=== PATIENT | female | born 1985 | race Caucasian/White ===

== ENCOUNTER 2020-11-29 18:36 | Emergency (ER) | payer OTHER, SELFPAY ==
--- NOTE | ~2020-11-29 | XR_ITS ---
EXAMINATION: XR hand LT min 3V EXAM DATE: 11/29/2020 18:58 INDICATION: Initial encounter following injury, with pain of the TECHNIQUE: Left hand frontal, lateral and oblique projections obtained and reviewed. There is no michelle or study for comparison. FINDINGS: Left metacarpal bones are unremarkable. There are no acute fractures or dislocations ident ified. There is no subcutaneous gas. The soft tissue is unremarkable. There are no radiopaque for eign bodies. IMPRESSION: No acute osseous findings. Reviewed, dictated and finalized at location A. IMPRESSION: No acute osseous findings.
[2020-11-29 18:45] VITALS: BP 140/99; PULSE 106; RESP 20; TEMP 36.7; O2SAT 98
--- NOTE | 2020-11-29 19:07 | ED.GENADULT ---
HPI - General Adult General Chief complaint: Extremity Injury, Upper Stated complaint: left hand injury Time Seen by Provider: 11/29/20 18:50 Source: patient and RN notes reviewed Mode of arrival: ambulatory Limitations: no limitations History of Present Illness HPI narrative: 35-year-old female presents with left hand and finger pain and swelling for 1 day. ?Nolvia reports LT hand stuck in the sliding door causing injury to LT hand. ?Tylenol last this am without relief. ?No radiation of pain. No loss of mobility. ?Exacerbating factors consist of movement. ?The relieving factor is immobility. ?Dominant hand is the RIGHT HAND. ?No suspected abuse. ?LMP 1 week ago. ?Remains active. ?The patient reports she has not been diagnosed with COVID-19. ?The patient reports she is not waiting for the results of a COVID-19 lab test. ?The patient reports she does not have fever, chills, weakness, fatigue, or myalgia. ?The patient reports she does not have a new or worsening cough or shortness of breath. ?The patient reports she does not have any rhinorrhea, congestion, loss of taste, sore throat, and diarrhea. ?Denies recent traveling. ?Denies concerns for COVID-19 or exposures. ?At this time, the patient is not suspected of having COVID-19. Some parts of this dictation were generated by voice recognition software and may contain typographical and/or grammatical inaccuracies. Related Data Home Medications Medication Instructions Recorded Confirmed amitriptyline 100 mg PO DAILY 11/29/20 11/29/20 carvedilol 12.5 mg PO BID 11/29/20 11/29/20 citalopram 20 mg PO DAILY 11/29/20 11/29/20 citalopram 40 mg PO DAILY 11/29/20 11/29/20 furosemide 0.5 mg PO DAILY 11/29/20 11/29/20 glipizide 5 mg PO BID 11/29/20 11/29/20 glipizide 10 mg PO BID 11/29/20 11/29/20 losartan 50 mg PO DAILY 11/29/20 11/29/20 metformin 1,000 mg PO BID 11/29/20 11/29/20 naproxen 500 mg PO BID PRN 11/29/20 11/29/20 Allergies Allergy/AdvReac Type Severity Reaction Status Date / Time No Known Allergies Allergy Unknown Verified 11/29/20 18:54 Review of Systems Review of Systems: Narrative: CONSTITUTIONAL: Denies fever, chills, sweats. EYES: Denies visual changes, redness, discharge. ENT: Denies rhinorrhea, congestion, sore throat, otalgia. CARDIOVASCULAR: Denies chest pain, palpitations, edema. RESPIRATORY: Denies dyspnea, wheezing, cough. GASTROINTESTINAL: Denies abdominal pain, nausea, vomiting, diarrhea. SKIN: Denies rash or itching. MUSCULOSKELETAL: Denies acute back pain or myalgia. Complains of Left hand and fingers swelling and pain. NEUROLOGIC: Denies numbness or focal weakness. PSYCHIATRIC: Denies anxiety or depression. All other systems reviewed & are unremarkable except as noted in HPI and below. [facility] Past Medical History Medical History (Updated 11/30/20 @ 00:00 by Lis Fontaine) Anxiety delivery delivered CHF (congestive heart failure) Diabetes Obesity Surgical History Surgical History (Updated 11/29/20 @ 19:28 by KIMBERLEE Harley) H/O section Family History Family History (Updated 11/29/20 @ 19:29 by KIMBERLEE Harley) Father , Unknown reason Unknown family medical history Mother Hypertension Social History Social History (Updated 11/29/20 @ 19:30 by KIMBERLEE Harley) Smoking status: Former smoker Tobacco type: cigarettes Second hand tobacco smoke exposure: No Smoking end date: 06/20/08 Alcohol intake: former Substance use: never Substance use type: does not use Living arrangements: with family Occupation/Education: unemployed Gender identity (if verbalized by the patient): Female Sexual Orientation (if Verbalized by the Patient): Straight or Heterosexual Comments At time of signature, agree with the nurse past medical, surgical, social, and family history. There is no relevant family history pertinent to the presenting complaint. Exam Narrative:
[2020-11-29 19:30] VITALS: BP 140/84
== END 2020-11-29 19:30 | disposition home or self-care (01) ==
PROVIDERS: Emergency Provider Nurse Practitioner Family; PCP Nurse Practitioner Family
DX: S63.92XA Sprain of unspecified part of left wrist and hand, initial encounter (principal); S60.222A Contusion of left hand, initial encounter; S60.022A Contusion of left index finger without damage to nail, initial encounter; S60.032A Contusion of left middle finger without damage to nail, initial encounter; W23.0XXA Caught, crushed, jammed, or pinched between moving objects, initial encounter; I10 Essential (primary) hypertension; E11.9 Type 2 diabetes mellitus without complications; F32.9 Major depressive disorder, single episode, unspecified
CPT/HCPCS: 73130; 99213; G0463

== ENCOUNTER 2021-04-25 18:01 | Emergency (ER) | payer OTHER, SELFPAY ==
--- NOTE | ~2021-04-25 | XR_ITS ---
EXAMINATION: XR elbow RT min 3V EXAM DATE: 04/25/2021 18:31 INDICATION: Fell down stairs, pain posterior rt elbow. Initial encounter. TECHNIQUE: Right elbow frontal, lateral with flexion, and oblique projections obtained and reviewed. There is no prior study for comparison. FINDINGS: Right elbow anterior humeral line intact. There are no acute fractures or dislocations federico ntified. There is no subcutaneous gas. The soft tissue is unremarkable. There are no radiopaque f oreign bodies. IMPRESSION: No acute osseous findings. Reviewed, dictated and finalized at location A. LY ASSOCIATE IMPRESSION: No acute osseous findings.
[2021-04-25 18:08] VITALS: BP 146/92; PULSE 89; RESP 20; TEMP 36.7; O2SAT 98
[2021-04-25 18:29] VITALS: BP 146/92; PULSE 89; RESP 20; TEMP 36.7; O2SAT 98
--- NOTE | 2021-04-25 18:45 | ED.UPPEXIN ---
HPI - Extremity Injury (Upper) General Chief Complaint: Extremity Injury, Upper Stated Complaint: right elbow injury History of Present Illness HPI narrative: Patient grabbed the arm rale and it fell off and she went rolling down the hill and she landed on her left elbow and she is wanting to make sure that her elbow is not broken. Related Data Home Medications Medication Instructions Recorded Confirmed amitriptyline 100 mg PO HS 11/29/20 04/25/21 carvedilol 12.5 mg PO BID 11/29/20 04/25/21 citalopram 20 mg PO HS 11/29/20 04/25/21 citalopram 40 mg PO HS 11/29/20 04/25/21 furosemide 20 mg PO DAILY PRN 11/29/20 04/25/21 glipizide 10 mg PO BID 11/29/20 04/25/21 losartan 100 mg PO DAILY 11/29/20 04/25/21 metformin 1,000 mg PO BID 11/29/20 04/25/21 cyclobenzaprine 10 mg PO TID PRN 04/25/21 04/25/21 dulaglutide [Trulicity] 1.5 mg SUBCUT WEEKLY 04/25/21 04/25/21 empagliflozin [Jardiance] 10 mg PO DAILY 04/25/21 04/25/21 furosemide 40 mg PO DAILY 04/25/21 04/25/21 Allergies Allergy/AdvReac Type Severity Reaction Status Date / Time No Known Allergies Allergy Unknown Verified 04/25/21 18:29 Review of Systems Review of Systems: left elbow pain PMFSH Past Medical History Medical History (Updated 04/26/21 @ 00:00 by Lis Fontaine) Anxiety delivery delivered CHF (congestive heart failure) Diabetes Obesity Surgical History Surgical History (Updated 11/29/20 @ 19:28 by KIMBERLEE Harley) H/O section Family History Family History (Updated 11/29/20 @ 19:29 by KIMBERLEE Harley) Father , Unknown reason Unknown family medical history Mother Hypertension Social History Social History (Updated 11/29/20 @ 19:30 by KIMBERLEE Harley) Smoking status: Former smoker Tobacco type: cigarettes Second hand tobacco smoke exposure: No Smoking end date: 06/20/08 Alcohol intake: former Substance use: never Substance use type: does not use Gender identity (if verbalized by the patient): Female Sexual Orientation (if Verbalized by the Patient): Straight or Heterosexual Comments At time as signature, I have reviewed and agree with nursing past medical, social, surgical and family history. Please see nursing chart for further information. There is no relevant family history pertinent to the presenting complaint. Exam Narrative: GENERAL:Well-appearing, well-nourished, and in no acute distress. HEAD:Normocephalic, atraumatic. EYES: PERRLA ENT: Nares clear, no rhinorrhea or epistaxis. Mucous membranes moist. CHEST: Clear to auscultation. No respiratory distress. EXTREMITIES: Left elebow pain with morbid obesit noted decreased range of motion due to weight and pain SKIN: Warm, dry, no rash. abrasion on elbow NEURO: No focal deficits. Alert and oriented x3. Course DRY COL[employer] MIXER/PA Physician Supervision [facility] [id number] [place], [place] [id number] XRay ReportSigned Patient: Nolvia Lopez ADOB: 1985MR#: [id number]/Sex: 35 / FAcct:[id number]: EXPBETH ADM Date: 04/25/21Attending Dr: Ordering Physician: Sandhya Gross APN Date of Service: 04/25/21 Procedure(s): XR elbow RT min 3V Accession Number(s): [id number] cc: Sandhya Gross APN; LARA,SHIVANI DUNNE~ EXAMINATION: XR elbow RT min 3V EXAM DATE: 04/25/2021 18:31 INDICATION: Fell down stairs, pain posterior rt elbow. Initial encounter. TECHNIQUE: Right elbow frontal, lateral with flexion, and oblique projections obtained and reviewed. There is no prior study for comparison. FINDINGS: Right elbow anterior humeral line intact. There are no acute fractures or dislocations identified. There is no subcutaneous gas. The soft tissue is unremarkable. There are no radiopaque foreign bodies. IMPRESSION: No acute osseous findings. Vital Signs Vital signs: Vital Signs Temperature 98.1 F 04/25/21 18:08 Pulse Rate 89 04/25/21 18:08 Re
== END 2021-04-25 18:55 | disposition home or self-care (01) ==
PROVIDERS: Emergency Provider Nurse Practitioner Family; PCP Nurse Practitioner Family
DX: S53.401A Unspecified sprain of right elbow, initial encounter (principal); W17.81XA Fall down embankment (hill), initial encounter; I11.0 Hypertensive heart disease with heart failure; E11.9 Type 2 diabetes mellitus without complications; E66.9 Obesity, unspecified; Z68.45 Body mass index [BMI] 70 or greater, adult
CPT/HCPCS: 73080; 99213; G0463

== ENCOUNTER 2024-03-26 13:57 | Emergency (ER) | payer OTHER, SELFPAY ==
[2024-03-26 14:02] VITALS: BP 116/58; PULSE 93; RESP 20; TEMP 36.6; O2SAT 95
--- NOTE | 2024-03-26 14:06 | ED.SKABFB ---
HPI - Skin/Abscess/Foreign Bdy General Chief complaint: Skin/Abscess/Foreign Body Stated complaint: Open wound on back Time Seen by Provider: 03/26/24 14:09 Source: patient Mode of arrival: ambulatory Limitations: no limitations History of Present Illness HPI narrative: 38 y/o female with DM and CHF presented for c/o of a wound to mid lower back for almost one month. States she was in the hospital for one week following weight loss surgery 02/26, where she developed the wound. Has been cleansing the wound with sterile saline solution and applying a bandage to the wet wound. States it now appears wider than it has. Pt contacted her surgeon who advised pt to see pcp, who was out of town. She is scheduled with pcp 04/02. Denies n/v/d/f/c. Related Data Home Medications Medication Instructions Recorded Confirmed amitriptyline 100 mg tablet 100 mg PO HS 11/29/20 03/26/24 carvedilol 12.5 mg tablet 12.5 mg PO BID 11/29/20 03/26/24 citalopram 20 mg tablet 20 mg PO HS 11/29/20 03/26/24 glipizide 10 mg tablet 10 mg PO BID 11/29/20 03/26/24 losartan 50 mg tablet 100 mg PO DAILY 11/29/20 03/26/24 atorvastatin 10 mg tablet 10 mg PO DAILY 03/26/24 03/26/24 bupropion HCl 150 mg 24 hr tablet, 150 mg PO DAILY 03/26/24 03/26/24 extended release dapagliflozin propanediol 5 mg 5 mg PO DAILY 03/26/24 03/26/24 tablet (Farxiga) enoxaparin 40 mg/0.4 mL 40 mg subcut DIRECTED 03/26/24 03/26/24 subcutaneous syringe ferrous sulfate 325 mg (65 mg 325 mg PO DAILY 03/26/24 03/26/24 iron) tablet (FeroSul) naproxen 500 mg tablet mg 03/26/24 omeprazole 20 mg capsule,delayed 20 mg PO BID 03/26/24 03/26/24 release ondansetron HCl 4 mg tablet mg 03/26/24 potassium chloride 10 mEq 10 meq PO DAILY 03/26/24 03/26/24 tablet,extended release sacubitril 24 mg-valsartan 26 mg 1 tablet PO BID 03/26/24 03/26/24 tablet (Entresto) tirzepatide 15 mg/0.5 mL 15 mg subcut WEEKLY 03/26/24 03/26/24 subcutaneous pen injector (Mounjaro) tirzepatide 5 mg/0.5 mL 5 mg subcut WEEKLY 03/26/24 03/26/24 subcutaneous pen injector (Mounjaro) tirzepatide 7.5 mg/0.5 mL 7.5 mg subcut WEEKLY 03/26/24 03/26/24 subcutaneous pen injector (Mounjaro) ursodiol 300 mg capsule 300 mg PO BID 03/26/24 03/26/24 Allergies Allergy/AdvReac Type Severity Reaction Status Date / Time No Known Allergies Allergy Unknown Verified 04/25/21 18:29 Review of Systems Review of Systems: CONSTITUTIONAL: Denies body aches, fever, chills, or sweats. CARDIOVASCULAR: Denies chest pain, palpitations, or edema. RESPIRATORY: Denies cough or dyspnea. GASTROINTESTINAL: Denies abdominal pain, nausea, vomiting, or diarrhea. SKIN: per HPI MUSCULOSKELETAL: Denies back pain, joint pain, or myalgia. NEUROLOGIC: Denies headache, numbness, tingling, or weakness. [facility] Past Medical History Medical History Anxiety delivery delivered CHF (congestive heart failure) Diabetes Obesity Surgical History Surgical History H/O section Family History Family History Father , Unknown reason Unknown family medical history Mother Hypertension Social History Social History Smoking status: Former smoker Tobacco type: cigarettes Second hand tobacco smoke exposure: No Smoking end date: 06/20/08 Alcohol intake: former Substance use: never Substance use type: does not use Living arrangements: with family Occupation/Education: unemployed Gender identity (if verbalized by the patient): Female Sexual Orientation (if Verbalized by the Patient): Straight or Heterosexual Comments At time of signature, I have reviewed and agree with nursing past medical, surgical, social and family history unless otherwise noted. Please see nursing chart for further information. There is no relevant family history pertinent to the presenting complaint Exam Narrative: GENERAL: Well-appearing EYES: conjunctivae clear, and EOMI. ENT: Mucous membranes moist. Oropharynx without edema, erythema or lesions. CHEST: Clear to auscultation. HEART: Regular rate and rhythm. SKIN: Warm, dry. Mid lumbar spine with healing wound approx 1.5cmx0.5cm, wound bed pink and yellow in color, dry. Superficial Wound extends laterally into skin fold approx 12 cm; dry and pink, no drainage, nontender.. No surrounding erythema or induration. NEURO: Alert and oriented x3. Course Course Emergency Course: Patient is aware of diagnosis, understands and agrees to treatment plan. Anticipatory guidance given. Patient agrees to follow-up as directed and is aware of reasons to seek care at the emergency department. Portions of this record may have been created with voice recognition software Level of Care: Express Care Visit Vital Signs Vital signs: Vital Signs Temperature 97.8 F 03/26/24 14:02 Pulse Rate 93 03/26/24 14:02 Respiratory Rate 20 03/26/24 14:02 Blood Pressure 116/58 L 03/26/24 14:02 Pulse Oximetry 95 03/26/24 14:02 Oxygen Delivery Room Air 03/26/24 14:02 Temperature 97.8 F 03/26/24 14:02 Pulse Rate 93 03/26/24 14:02 Respiratory Rate 20 03/26/24 14:02 Blood Pressure 116/58 L 03/26/24 14:02 Pulse Oximetry 95 03/26/24 14:02 Oxygen Delivery Room Air 03/26/24 14:02 Reviewed MDM - Skin/Abscess/Foreign Bdy MDM Narrative Medical decision making narrative: Discussed physical exam findings and reviewed RX. Advised supportive measures and signs/symptoms to go to the ER. Pt is appropriate for outpt treatment and f/uwith pcp in 1 week. Differential Diagnosis Differential diagnosis: Likely abscess of skin or subcutaneous tissue, urticaria, herpes zoster, cellulitis and contact dermatitis Discharge Plan Discharge Clinical Impression: Open wound of back Patient Disposition: Home, Self-Care Condition: Stable Instructions: Antibiotic Form, Acute Wounds (ED) Additional Instructions: Keep the area clean and dry - cleanse daily with warm water and mild soap and allow to fully dry. Ok to apply neosporin to the site Keep it open to air (no bandages unless the site is draining) Watch for worsening symptoms including pain, redness, swelling, streaking, pus/drainage, fever. Go to the ER with any of these symptoms or concerns. Follow up with primary care provider As scheduled in 1 week Prescriptions: New doxycycline hyclate 100 mg tablet 100 mg PO BID 5 Days Qty: 10 0RF No Action carvedilol 12.5 mg tablet 12.5 mg PO BID glipizide 10 mg tablet 10 mg PO BID losartan 50 mg tablet 100 mg PO DAILY citalopram 20 mg tablet 20 mg PO HS amitriptyline 100 mg tablet 100 mg PO HS atorvastatin 10 mg tablet 10 mg PO DAILY bupropion HCl 150 mg tablet extended release 24 hr 150 mg PO DAILY enoxaparin 40 mg/0.4 mL syringe 40 mg subcut DIRECTED Entresto 24-26 mg tablet 1 tablet PO BID ursodiol 300 mg capsule 300 mg PO BID ferrous sulfate [FeroSul] 325 mg (65 mg iron) tablet 325 mg PO DAILY dapagliflozin propanediol [Farxiga] 5 mg tablet 5 mg PO DAILY omeprazole 20 mg capsule,delayed release(DR/EC) 20 mg PO BID naproxen 500 mg tablet Mounjaro 15 mg/0.5 mL pen injector 15 mg SUBCUT WEEKLY Mounjaro 5 mg/0.5 mL pen injector 5 mg SUBCUT WEEKLY Mounjaro 7.5 mg/0.5 mL pen injector 7.5 mg SUBCUT WEEKLY ondansetron HCl 4 mg tablet potassium chloride 10 mEq tablet extended release 10 meq PO DAILY Follow-up/Referrals: Hardy,Amira Brothers APN [Primary Care Provider] -
== END 2024-03-26 14:21 | disposition home or self-care (01) ==
PROVIDERS: Emergency Provider Nurse Practitioner Family; PCP Nurse Practitioner Family
DX: S31.000A Unspecified open wound of lower back and pelvis without penetration into retroperitoneum, initial encounter (principal); X58.XXXA Exposure to other specified factors, initial encounter; Z87.891 Personal history of nicotine dependence; E11.8 Type 2 diabetes mellitus with unspecified complications; Z79.84 Long term (current) use of oral hypoglycemic drugs; I50.9 Heart failure, unspecified; E66.9 Obesity, unspecified; Z68.44 Body mass index [BMI] 60.0-69.9, adult; F41.9 Anxiety disorder, unspecified
CPT/HCPCS: 99213; G0463

== ENCOUNTER 2025-04-12 15:01 | Emergency (ER) | payer OTHER, SELFPAY ==
[2025-04-12 15:06] VITALS: BP 130/72; PULSE 95; RESP 20; TEMP 36.4; O2SAT 98
[2025-04-12] MEDS: TETANUS,DIPHTHERIA,AC PERTUSSIS ADULT (0.5 ML) BOOSTRIX IM (15:19)
--- NOTE | 2025-04-12 15:23 | ED.WOUNDLAC ---
HPI - Wound/Laceration General Chief Complaint: Wound/Laceration Stated Complaint: left hand finger lac Time Seen by Provider: 04/12/25 15:10 Source: patient and RN notes reviewed Mode of arrival: ambulatory Limitations: no limitations History of Present Illness HPI narrative: 39-year-old female presents Express Care complaining left middle finger laceration occurred approximately 7 hours ago. Patient was cleaning her car when accidentally cut her finger on something metal in her car. Patient said about an hour ago while at the store the wound started bleeding again and Decided to come in for further evaluation. Patient was given a Band-Aid at the store, the bleeding is controlled prior to arrival. Patient reports a history of diabetes. Denies any other injuries, numbness, tingling every other symptoms. Patient's tetanus is not up-to-date. Related Data Home Medications ?Medication ?Instructions ?Recorded ?Confirmed ?Last Taken ?Type amitriptyline 100 mg tablet 100 mg PO HS 11/29/20 03/26/24 Unknown History carvedilol 12.5 mg tablet 12.5 mg PO BID 11/29/20 03/26/24 Unknown History citalopram 20 mg tablet 20 mg PO HS 11/29/20 03/26/24 Unknown History glipizide 10 mg tablet 10 mg PO BID 11/29/20 03/26/24 Unknown History losartan 50 mg tablet 100 mg PO DAILY 11/29/20 03/26/24 Unknown History atorvastatin 10 mg tablet 10 mg PO DAILY 03/26/24 03/26/24 Unknown History bupropion HCl 150 mg 24 hr tablet, 150 mg PO DAILY 03/26/24 03/26/24 Unknown History extended release dapagliflozin propanediol 5 mg 5 mg PO DAILY 03/26/24 03/26/24 Unknown History tablet (Farxiga) enoxaparin 40 mg/0.4 mL 40 mg subcut DIRECTED 03/26/24 03/26/24 Unknown History subcutaneous syringe ferrous sulfate 325 mg (65 mg 325 mg PO DAILY 03/26/24 03/26/24 Unknown History iron) tablet (FeroSul) naproxen 500 mg tablet mg 03/26/24 Unknown History omeprazole 20 mg capsule,delayed 20 mg PO BID 03/26/24 03/26/24 Unknown History release sacubitril 24 mg-valsartan 26 mg 1 tablet PO BID 03/26/24 03/26/24 Unknown History tablet (Entresto) tirzepatide 15 mg/0.5 mL 15 mg subcut WEEKLY 03/26/24 03/26/24 Unknown History subcutaneous pen injector (Mounjaro) tirzepatide 5 mg/0.5 mL 5 mg subcut WEEKLY 03/26/24 03/26/24 Unknown History subcutaneous pen injector (Mounjaro) tirzepatide 7.5 mg/0.5 mL 7.5 mg subcut WEEKLY 03/26/24 03/26/24 Unknown History subcutaneous pen injector (Mounjaro) buspirone 5 mg tablet mg 04/12/25 Unknown History furosemide 20 mg tablet mg 04/12/25 Unknown History semaglutide 0.25 mg or 0.5 mg (2 mg subcut 04/12/25 Unknown History mg/3 mL) subcutaneous pen injector (Ozempic) semaglutide 1 mg/dose (4 mg/3 mL) mg subcut 04/12/25 Unknown History subcutaneous pen injector (Ozempic) Allergies Allergy/AdvReac Type Severity Reaction Status Date / Time No Known Allergies Allergy Unknown Verified 04/12/25 15:10 Review of Systems Review of Systems: CONSTITUTIONAL: Denies fever, chills, or sweats. EYES: Denies visual changes, redness, or discharge. ENT: Denies rhinorrhea, congestion, sore throat, or otalgia. CARDIOVASCULAR: Denies chest pain, palpitations, or edema. RESPIRATORY: Denies cough or dyspnea. GASTROINTESTINAL: Denies abdominal pain, nausea, vomiting, or diarrhea. GENITOURINARY: Denies dysuria or hematuria. SKIN: Denies rash or itching. Positive for laceration. MUSCULOSKELETAL: Denies back pain, joint pain, or myalgia. NEUROLOGIC: Denies headache, numbness, or weakness. PSYCHIATRIC: Denies anxiety or depression. All other systems reviewed are negative, except as documented in HPI. [facility] Past Medical History Medical History delivery delivered CHF (congestive heart failure) Anxiety Diabetes Obesity Surgical History Surgical History H/O section Family History Family History Father , Unknown reason Unknown family medical history Mother Hypertension Social History Social History Smoking status: Former smoker Tobacco type: cigarettes Second hand tobacco smoke exposure: No Smoking end date: 06/20/08 Alcohol intake: former Substance use: never Substance use type: does not use Living arrangements: with family Occupation/Education: unemployed Gender identity (if verbalized by the patient): Female Sexual Orientation (if Verbalized by the Patient): Straight or Heterosexual Comments At the time of my signature, I reviewed and agree with the nursing past medical, surgical, social, and family history. There is no relevant family history pertinent to the patient complaint. Exam Narrative: GENERAL: This is a well-nourished, well-developed adult, in no apparent distress. They are non ill-appearing, nontoxic appearing. HEAD: normocephalic, atraumatic. EYES: Sclera clear/white. Conjunctiva normal. Vision is grossly intact. Extraocular movements intact EARS: External ears normal, Hearing grossly intact. NOSE: External nose normal THROAT: Mucous membranes moist, NECK: Neck supple, CARDIOVASCULAR: Regular rate and rhythm RESPIRATORY: Respiratory rate normal, respiratory effort nonlabored, no respiratory distress SKIN: warm, Dry, intact with no suspicious lesions or rash, good texture and turgor. NEURO: awake, alert, and oriented to person, place and time. There were no obvious focal neurologic abnormalities. EXTREMITIES: Left middle finger.: There is a palmar laceration to the distal end of the middle finger. Is measuring approximately 1 cm long. It is well approximated. Wound is superficial. No subcutaneous tissue visualized. Hemostasis achieved prior to arrival. Nontender to palpate. Capillary refill less than 2 seconds. Sensation intact. Nail bed and nail plate are intact. Patient is able to flex and extend against resistance at the PIP, DIP, and MCP joint. Neurovascular status intact distal injury. Radial, ulnar, median nerve distribution intact. Left radial pulse 2 +palpable. BACK: Nontender without deformity. Course Course Emergency Course: Portions of this record may have been created with voice recognition software Level of Care: Express Care Visit Vital Signs Vital signs: Vital Signs Temperature 97.5 F L 04/12/25 15:06 Pulse Rate 95 04/12/25 15:06 Respiratory Rate 20 04/12/25 15:06 Blood Pressure 130/72 04/12/25 15:06 Pulse Oximetry 98 04/12/25 15:06 Oxygen Delivery Room Air 04/12/25 15:06 Temperature 97.5 F L 04/12/25 15:06 Pulse Rate 95 04/12/25 15:06 Respiratory Rate 20 04/12/25 15:06 Blood Pressure 130/72 04/12/25 15:06 Pulse Oximetry 98 04/12/25 15:06 Oxygen Delivery Room Air 04/12/25 15:06 Reviewed MDM - Wound/Laceration MDM Narrative Medical decision making narrative: Patient's tetanus is updated today. Is well-approximated, wound is well superficial. Steri-Strips applied to the wound along with Band-Aid. No indication for sutures. Neurovascular status intact distal injury. Patient says her diabetes is well controlled. Past patient about signs of infection what to look for. Discussed supportive care. Discussed physical exam findings. Advised supportive measures and signs/symptoms to go to the ER. Pt is appropriate for outpt treatment and f/u. Differential Diagnosis Differential diagnosis: Likely laceration, abrasion and avulsion of skin Critical Care Time Critical Care Time Critical Care Time: No Discharge Plan Discharge Clinical Impression: Laceration of finger Qualifiers: Encounter type: initial encounter Finger: middle finger Damage to nail status: without damage Foreign body presence: without foreign body Laterality: left Qualified Code(s): S61.213A - Laceration without foreign body of left middle finger without damage to nail, initial encounter Patient Disposition: Home Condition: Stable Instructions: Finger Laceration (ED) Additional Instructions: You may leave the Steri-Strips on for 3-7 days. Wash the wound daily with mild soap and water. Do Not soak or scrub the wound. do Not use peroxide or alcohol to the wound. Keep the wound dry and covered with a Band-Aid, change the dressing daily or when visibly soiled. Follow-up with PCP in 3-5 days. Look for signs of infection such as increased redness, swelling, pain, fevers, green/yellow drainage. Go To the ER for any signs of infection any serious concerns. Your tetanus is updated today. Patient Language: Qatari Prescriptions: No Action carvedilol 12.5 mg tablet 12.5 mg PO BID glipizide 10 mg tablet 10 mg PO BID losartan 50 mg tablet 100 mg PO DAILY citalopram 20 mg tablet 20 mg PO HS amitriptyline 100 mg tablet 100 mg PO HS buspirone 5 mg tablet furosemide 20 mg tablet Ozempic 1 mg/dose (4 mg/3 mL) pen injector SUBCUT Ozempic 0.25 mg or 0.5 mg (2 mg/3 mL) pen injector SUBCUT doxycycline hyclate 100 mg tablet 100 mg PO BID 5 Days Qty: 10 0RF atorvastatin 10 mg tablet 10 mg PO DAILY bupropion HCl 150 mg tablet extended release 24 hr 150 mg PO DAILY enoxaparin 40 mg/0.4 mL syringe 40 mg subcut DIRECTED Entresto 24-26 mg tablet 1 tablet PO BID ferrous sulfate [FeroSul] 325 mg (65 mg iron) tablet 325 mg PO DAILY dapagliflozin propanediol [Farxiga] 5 mg tablet 5 mg PO DAILY omeprazole 20 mg capsule,delayed release(DR/EC) 20 mg PO BID naproxen 500 mg tablet Mounjaro 15 mg/0.5 mL pen injector 15 mg SUBCUT WEEKLY Mounjaro 5 mg/0.5 mL pen injector 5 mg SUBCUT WEEKLY Mounjaro 7.5 mg/0.5 mL pen injector 7.5 mg SUBCUT WEEKLY Follow-up/Referrals: Hardy,Amira Brothers APN [Primary Care Provider, Unknown] Time of Disposition: 15:23
--- OUTSIDE RECORDS SUMMARY | 2025-04-12 17:40 | XMS_ITS ---
Author Organization [facility] Address [address] [place] [address] Care Team Providers Care Supervisor Body Assembly Name Role Phone Dash, Amira Lee NP Primary Care Provider [phone] Katrin Hong MD Unavailable [phone] Janet Sanchez NP Unavailable [phone] Active Problems Patient Care Coordination No te Formatting of this note migh t be different from the original. 39yo w/ PMH significant for BMI , T2DM, HTN, hx CHF vs PPCM with G1 endometrioid adenocarcinoma s/p D&C most recently 09/09 w/ Liletta IUD in place - 08/29/21: D&C IUD FIGO Gr1 EmCa. - 12/2021: D&C with FIGO Gr1 EmCa. Continue Provera 10 mg BID and mIUD. - 04/2022: D&C FIGO Gr1 EmCa - 08/2022: D&C with CAH - 06/2024: sampling and IUD replacement, no hyperplasia or malignancy but scant sample Plan 01.06.25: - repeat sampling - Continue to encourage weight loss - q6mo EMB if continued CAH Problem Noted Date Diagnosed Date Malpositioned intrauterine device 04/15/2024 Acute kidney injury 04/08/2024 Assessment & Plan (04/09/2024 3:08 PM PORCELAIN ENAMEL INSTALLER): -likely pre-renal etiology (given clinical hx) due to over-diuresis, ongoing use of ARBs and poor PO intake -cannot entirely r/o ATN given relative hypotensive episodes; however, UA did not reveal any muddy casts -s/p IVF's -hold all diuretics, BP meds -avoid neprhrotoxins -renal dose meds -monitor urine output closely -repeat BMP with improving Cr with fluids Assessment & Plan (04/08/2024 10:17 PM PORCELAIN ENAMEL INSTALLER): -likely pre-renal etiology (given clinical hx) due to over-diuresis, ongoing use of ARBs and poor PO intake -cannot entirely r/o ATN given relative hypotensive episodes; however, UA did not reveal any muddy casts -she was under-resuscitated in ED, receiving only 1.5L IVF which likely represents less than 20% of her total blood volume -will continue fluid resuscitation overnight; 1L IV NS now then 250/hr x 6 hrs -hold all diuretics, BP meds -avoid neprhrotoxinss -renal dose meds -monitor urine output closely -repeat BMP at [place] Acute hypokalemia 04/08/2024 Assessment & Plan (04/09/2024 7:16 AM PORCELAIN ENAMEL INSTALLER): -2/2 over-diuresis and vomiting with inadequate oral repletion -she received only 20 mEq KCL in ED along with 1L IV LR -I suspect the measured K value (2.8) on ER labs does not accurately reflect her total body K levels; she will likely need further repletion -will check BMP at [place], along with mag and phos levels -telemetry monitoring overnight -replete K, Mag, Phos PRN Assessment & Plan (04/08/2024 10:21 PM PORCELAIN ENAMEL INSTALLER): -2/2 over-diuresis and vomiting with inadequate oral repletion -she received only 20 mEq KCL in ED along with 1L IV LR -I suspect the measured K value (2.8) on ER labs does not accurately reflect her total body K levels; she will likely need further repletion -will check BMP at [place], along with mag and phos levels -telemetry monitoring overnight -replete K, Mag, Phos PRN Syncope due to orthostatic hypotension Assessment & Plan (04/09/2024 7:16 AM PORCELAIN ENAMEL INSTALLER): -due to over-diuresis, N/V with poor PO intake, ongoing antihypertensive use and polypharmacy -aggressive IV fluid resuscitation overnight -hold BP meds and diuretics -telemetry monitoring -check orthostatics now and in AM -doubt cardiac etiology so repeat TTE of limited utility Assessment & Plan (04/08/2024 10:32 PM PORCELAIN ENAMEL INSTALLER): -due to over-diuresis, N/V with poor PO intake, ongoing antihypertensive use and polypharmacy -aggressive IV fluid resuscitation overnight -hold BP meds and diuretics -telemetry monitoring -check orthostatics now and in AM -doubt cardiac etiology so repeat TTE of limited utility Overeating disorder 04/08/2024 Assessment & Plan (04/09/2024 7:17 AM PORCELAIN ENAMEL INSTALLER): -despite her recent sleeve gastrectomy, she still exhibits S/Sx of compulsive overeating, manifested by rapid ingestion of foods and eating past the point of satiety -she will benefit from outpatient referral to a psychotherapist who can assist with behavioral changes long-term Assessment & Plan (04/08/2024 8:35 PM PORCELAIN ENAMEL INSTALLER): -despite her recent sleeve gastrectomy, she still exhibits S/Sx of compulsive overeating, manifested by rapid ingestion of foods and eating past the point of satiety -she will benefit from outpatient referral to a psychotherapist who can assist with behavioral changes long-term Abnormal EKG 04/08/2024 Assessment & Plan (04/09/2024 3:13 PM PORCELAIN ENAMEL INSTALLER): -EKG in ED notable for RBBB and low voltage QRS complexes in precordial leads -the RBBB likely reflective of untreated RADHA +/- pulm HTN -the low voltages in the precordial leads likely reflects the EKG changes of obesity and increased thoracic cage diameter -she will be on telemetry overnight given the hypokalemia, but no further workup is warranted at this time -qTC prolonged at 580+ -will hold qtc prolonging agents as able Assessment & Plan (04/08/2024 9:33 PM PORCELAIN ENAMEL INSTALLER): -EKG in ED notable for RBBB and low voltage QRS complexes in precordial leads -the RBBB likely reflective of untreated RADHA +/- pulm HTN -the low voltages in the precordial leads likely reflects the EKG changes of obesity and increased thoracic cage diameter -she will be on telemetry overnight given the hypokalemia, but no further workup is warranted at this time Polypharmacy 04/08/2024 Assessment & Plan (04/09/2024 7:17 AM PORCELAIN ENAMEL INSTALLER): -she is on multiple medications for CHF that have a diuretic effect including torsemide, spironolactone, metolazone, SLGT-I and Entresto despite a recent TTE that shows no evidence of LV dysfunction -she also may be taking concurrent losartan with the entresto as well as Jardiance and farxiga concurrently -hold all diuretics, antihypertensives and SLGTi's for now -re-evaluate home meds in the AM once her renal function is closer to baseline and once her BP is stable; I suspect several meds can be tapered/discontinued Assessment & Plan (04/08/2024 10:29 PM PORCELAIN ENAMEL INSTALLER): -she is on multiple medications for CHF that have a diuretic effect including torsemide, spironolactone, metolazone, SLGT-I and Entresto despite a recent TTE that shows no evidence of LV dysfunction -she also may be taking concurrent losartan with the entresto as well as Jardiance and farxiga concurrently -hold all diuretics, antihypertensives and SLGTi's for now -re-evaluate home meds in the AM once her renal function is closer to baseline and once her BP is stable; I suspect several meds can be tapered/discontinued Headache 03/08/2024 Assessment & Plan (03/08/2024 4:58 PM CDT): Over the past few days associated with hearing loss that improved after removing scopolamine patch and feeling off balance. - CT head in the ED with no acute intracranial process Unclear etiology at this time. Plan: - Symptomatic treatement H/O gastric sleeve 03/08/2024 Assessment & Plan (04/09/2024 3:11 PM PORCELAIN ENAMEL INSTALLER): -bariatric diet -nutrition consult -MIS/BariSurg to follow while hospitalized -educate on smaller more frequent meals Assessment & Plan (04/08/2024 9:37 PM PORCELAIN ENAMEL INSTALLER): -bariatric diet -nutrition consult in AM -MIS/BariSurg to follow while hospitalized Assessment & Plan (03/08/2024 5:00 PM CDT): Surgery on Feb 26. Plan: - Appreciate RD consult - FLD, ensure max chocolate, vanilla - Miralax and senna BID - Ursodiol 300 mg BID - Flexeril 10 mg TID PRN Mood disorder 03/08/2024 Assessment & Plan (03/08/2024 5:03 PM CDT): Anxiety and depression. Home citalopram 20 mg, buspar 5 mg BID, buproprion 150 mg daily Concerns for self-harm on Mar 05 but patient then denied intentions. HLD (hyperlipidemia) 03/08/2024 Assessment & Plan (03/08/2024 5:04 PM CDT): Continue home atorvastatin 10 mg daily. Chronic pain syndrome 03/08/2024 Assessment & Plan (03/08/2024 5:04 PM CDT): Home amitriptyline 100 mg nightly. Continue. Acute on chronic congestive heart failure, unspecified heart failure type 03/03/2024 Assessment & Plan (03/09/2024 4:20 PM CDT): HFpEF. - Last TTE 10/2022 but limited study. 08/2022 with EF 65-70%, moderate pHTN, mild tricuspid regurg. Plan: - Home coreg 12.5 mg BID, metolazone 2.5 mg MWF, losartan 100 mg daily -Torsemide 40 mg BID - Wean O2 as tolerated - Incentive spirometry - Strict IOs, daily weights - Telemetry Morbid (severe) obesity due to excess calories 1 RADHA (obstructive sleep apnea) 07/29/2023 Assessment & Plan (04/09/2024 7:17 AM PORCELAIN ENAMEL INSTALLER): -not compliant with home CPAP -may benefit from repeat sleep study as an outpatient Assessment & Plan (04/08/2024 10:33 PM PORCELAIN ENAMEL INSTALLER): -not compliant with home CPAP -may benefit from repeat sleep study as an outpatient Assessment & Plan (03/09/2024 4:21 PM CDT): No home device. Plan: - BiPAP per RT Other specified anxiety disorders 07/29/2023 Major depressive disorder, recurrent episode, mo derate 07/29/2023 Elevated TSH 06/17/2023 Assessment & Plan (06/17/2023 7:26 PM PORCELAIN ENAMEL INSTALLER): Labs as ordered. BMI 70 and over, adult 05/09/2023 CAD (coronary artery disease) 11/26/2022 SOB (shortness of breath) 11/26/2022 Pulmonary hypertension 10/31/2022 Acute on chronic congestive heart failure 2022 Presumed Pulmonary emboli 09/13/2022 Congestive heart failure 09/13/2022 Acute respiratory failure with hypoxia and hyper carbia 09/12/2022 Assessment & Plan (03/09/2024 4:21 PM CDT): - VBG with hypercarbia. Most likely due to untreated RADHA and possible OHS Plan: - BiPAP - Diuresis as elsewhere - RT for home O2 desat eval Fatigue 12/21/2021 Assessment & Plan (01/15/2023 9:23 AM CDT): Continues but improved with use of bipap at night. Assessment & Plan (12/21/2021 6:55 PM CDT): Labs. Discussed importance of adequate sleep; good sleep hygiene in controlling weight as well as for overall health. Class 3 severe obesity with body mass index (BMI) greater than or equal to 70 in adult 12/21/2021 Assessment & Plan (01/15/2023 9:34 AM CDT): Obesity is ongoing. Diet interventions: as noted. Resources provided in AVS. Regular aerobic exercise program discussed. Plan- Interested in pursuing bariatric surgery, resources provided in AVS to schedule appointment with their office. Continue pharmacotherapy with GLP-1 RA. Continue diet/exercise interventions as discussed. Follow up with Dr. Hong in [x] 1 month; [] 2 months; [] 3 months; [] 6 months; [] Other: Assessment & Plan (12/09/2022 9:57 PM CDT): Obesity is overall stable . Plan: Diet interventions: as noted.., Regular aerobic exercise program discussed., and Medication as prescribed. Follow up in [] 1 month; [] 2 months; [x] 3 months; [] 6 months; [] Other: Assessment & Plan (2022 8:08 AM PORCELAIN ENAMEL INSTALLER): Obesity is worsening. Diet interventions: as noted. Regular aerobic exercise program discussed. Discussed use of zonisamide. Explained that zonisamide is a seizure medication which is often used for chronic pain, such as migraines. It was found that patients taking it for these reasons often had loss of appetite and weight loss as side effects; now it is used to help with weight loss. This is an off-label use, but there are studies supporting a benefit in binge eating disorder and with weight loss in general. Plan- Continue current pharmacotherapy if labs WNL, consider increase of trulicity to 4.5 mg and addition of zonisamide in setting of pain and for added benefit of decreasing appetite. Continue diet/exercise interventions as discussed. Schedule follow up with Dr. Hong in 1 month. Assessment & Plan (12/21/2021 7:02 PM CDT): Obesity worsening. General weight loss/lifestyle modification strategies discussed (elicit support from others; identify saboteurs; non-food rewards, etc). Diet interventions: as noted. Recommendations provided in AVS. Informal exercise measures discussed, e.g. taking stairs instead of elevator. Regular aerobic exercise program discussed. Provided information on bariatric surgery. More detailed recommendations pending review of labs and food record. Metabolic and nutritional disorder 12/21/2021 Assessment & Plan (07/24/2022 5:15 PM PORCELAIN ENAMEL INSTALLER): Reviewed interim labs with her. A1C at 10 in December. Recheck CMP, A1C. Continue low-carb (<150 g/day), low-glycemic diet. Assessment & Plan (12/21/2021 7:01 PM CDT): Labs. Discussed insulin resistance including effect on weight. Recommended low- carb, low-glycemic diabetic diet; choose whole grains and avoid more highly processed carbohydrates. Discussed potential benefits of this w/r/t gut microbiome. Referred to ADA and [employer] websites for additional information on topics including glycemic index/carbohydrate choices, protein sources. More detailed recommendations pending review of labs and food record. Weight loss counseling, encounter for 12/21/2021 Overview (04/04/2022): Referred to weight management clinic Assessment & Plan (01/15/2023 9:26 AM CDT): Reviewed calorie restriction based on BMR/carb and protein goals as previously detailed. Asked to try to track consistently with smartphone jae for at least 1 week to help identify calorie/carb/protein intake. Reviewed benefits of tracking even if only intermittently to help identify calories/carbs/proteins and becoming more mindful. Reviewed recommendation/goal of increasing daily activity as tolerated. Commended for multiple healthy changes to diet (eliminating soda, increasing veggies, less highly processed carbs). Assessment & Plan (12/09/2022 9:55 PM CDT): Reviewed calorie restriction based on BMR as previously detailed. Reviewed recommendation/goal of >/= 150 minutes/week moderate-intensity aerobic exercise. Asked to keep detailed food diary for at least 1 week and bring to next visit and/or continue tracking on phone. Assessment & Plan (12/21/2021 6:56 PM CDT): Discussed that significant health benefits/risk reduction may be seen with even 5% weight loss. Discussed that weight loss will require calorie deficit. Calculated basal metabolic rate and estimated total energy expenditure; discussed 500-1000 kcal/day deficit to lose 1-2 lb per week. Asked to keep detailed food diary for at least 1 week and bring to next visit. Discussed setting SMART goals. Discussed relatively small, although significant, role of exercise in weight loss; greater importance in weight maintenance as shown in Look Ahead study and National Weight Control Registry. Discussed recommendation/goal for 150 minutes per week moderate-intensity aerobic exercise. Endometrial cancer 09/27/2021 Overview (04/15/2024): - 08/29/21: exam under anesthesia, diagnostic hysteroscopy, dilation and curettage, and Mirena IUD insertion on 08/29/21. Pathology resulted FIGO Gr1 EmCa. - 12/2021: D&C with FIGO Gr1 EmCa. Continue Provera 10 mg BID and mIUD. - 04/04/2022: Provera BID, hIUD - 04/2022: D&C FIGO Gr1 EmCa - 08/2022: D&C with CAH - 11/2022: Plan for repeat EUA. Ultimately deferred due to weight loss surgery and complications. - 03/2024: Consents signed for repeat D&C/hysteroscopy/IUD replacement. Will address hysterectomy as patient continues to lose weight Plan: - Continue mIUD - Consented for EUA, D&C, hysteroscopy, hIUD replacement - Continue to encourage weight loss - q6mo EMB if continued CAH > hysterectomy when able Assessment & Plan (03/09/2024 4:21 PM CDT): Surgery precluded by weight at this time. Currently has mirena IUD. - CTAP Oct 15 with mispositioned mirena Plan: - OBGYN to reposition mirena in OR - Defer until stable from cardiopulmonary standpoint - OP referral T2DM (type 2 diabetes mellitus) 2021 Assessment & Plan (04/09/2024 1:02 PM PORCELAIN ENAMEL INSTALLER): -SSI with QID accuchecks -A1c of 8.0 continuing downward trend -diabetic bariatric diet Assessment & Plan (04/08/2024 9:05 PM PORCELAIN ENAMEL INSTALLER): -SSI with QID accuchecks -A1c added to ED labs -diabetic bariatric diet Assessment & Plan (03/08/2024 5:04 PM CDT): Sept 2023 A1c 8.1 Home glipizide Plan: - SSI Assessment & Plan (01/15/2023 9:32 AM CDT): Reviewed interim labs. Plans to have A1C drawn at upcoming PCP visit. Continue low-carb (<150 g/day), low-glycemic diet. Continue current medications, discussed benefits of metformin and that her BG may rise without it-she is not interested in restarting it at this time. Would benefit from tirzepatide however, insurance limits use. Discussed importance of daily home BG checks and that monitoring more through day to identify sugar spikes could help her learn to avoid foods that increase BG. Assessment & Plan (12/09/2022 9:56 PM CDT): Reviewed most recent labs available. Continue low-carb (<150 g/day), low- glycemic diet. Continue current medications for now. Would be a good candidate for tirzepatide if covered. Assessment & Plan (2022 8:50 AM PORCELAIN ENAMEL INSTALLER): Discussed elevated A1C at 10 in December and need to recheck. Continue metformin/Jardiance/trulicity as prescribed. Consider stopping glipizide due to weight positive effects, await A1C result. Encouraged to start checking blood sugars at home, fasting if possible. Discussed continued focus on protein with each meal, reduction of carbohydrates/calories and daily goals reviewed. Consider increase of trulicity to 4.5 mg weekly if labs WNL to maximize weight loss potential. Consider switch to tirzepatide if insurance allows. HTN (hypertension) 2021 Abnormal uterine bleeding (AUB) 2021 Morbid obesity 07/07/2020 Low back pain Assessment & Plan (12/21/2021 6:56 PM CDT): Discussed potential for diminished pain, improved function and reduced progression with weight loss. Snores Assessment & Plan (12/21/2021 7:05 PM CDT): Discussed comorbidities associated with sleep apnea, including effects on weight, and stressed importance of adequate treatment if present. Recommended to discuss possible sleep study with PCP. Current Treatment and Therapy Plans No current plan information found. Past Treatment and Therapy Plans No past plan information found. Lifetime Dose Tracking * Chemical Lifetime Dose Automatic Entry Manual Entr y Fluoro Time 1.5 minutes 0 minutes 1.5 minutes DLP 7,293 mGycm 7,293 mGycm 0 mGycm Resolved Problems Problem Noted Date Diagnosed Date Resolved Date Tachycardia 09/13/2022 09/13/2022
--- OUTSIDE RECORDS SUMMARY | 2025-04-12 17:40 | XMS_ITS | Clinical Summary ---
Author Organization [facility] Address [address] [place] [address] Care Team Providers Care Commercial Credit Reviewer Name Role Phone Hardy, Amira Lee NP Primary Care Provider [phone] Katrin Hong MD Unavailable [phone] Janet Sanchez NP Unavailable [phone] Allergies No known active allergies Medications citalopram (CeleXA) 20 mg tabletIndicat ions:Anxiety with Depression Take 1 tablet (20 mg total) by mouth nightly Total of 60mg pm Active amitriptyline (ELAVIL) 100 mg tabletIndicat ions:Insomnia ,depression Take 1 tablet (100 mg total) by mouth nightly 08/06/19 22 Active buPROPion XL (WELLBUTRIN XL) 150 mg 24 hr tabletIndicat ions:Anxiety with Depression Take 1 tablet (150 mg total) by mouth every morning Active potassium chloride ER 10 mEq CR tabletIndicat ions:hypokale bushra prevention Take 1 tablet/capsule (10 mEq total) by mouth every morning Active OneTouch Ultra Test strip 12/04/19 23 Active OneTouch Delica Plus Lancet 30 gauge misc as directed 02/29/20 23 Active busPIRone (BUSPAR) 5 mg tabletIndicat ions:Generali zed Anxiety Disorder Take 1 tablet (5 mg total) by mouth 2 (two) times a day 02/22/20 23 Active levonorgestre L (Mirena) IUD Take by intrauterine route. Active glipiZIDE (GLUCOTROL) 10 mg tabletIndicat ions:type 2 diabetes mellitus Take 1 tablet (10 mg total) by mouth 2 (two) times a day before breakfast and lunch 01/30/20 24 Active collagen/biot in/ascorbic acid (COLLAGEN 1500 PLUS C ORAL)Indicati ons:supplemen t Take 1 tablet by mouth every morning Active cyanocobalami n (Vitamin B-12) 500 mcg tablet Take 1 tablet (500 mcg total) by mouth daily Start post Surgery 90 tablet 3 02/12/20 24 Active Additional Information Patient taking differently:500 mcg oralEvery morning, Start post Surgery,Indications: Prevention of Vitamin B12 Deficiency, Informant: Self, Reported on 06/30/2024 ursodioL (ACTIGALL) 300 mg capsule Take 1 capsule (300 mg total) by mouth 2 (two) times a day Start post-surgery 180 capsule 1 02/12/20 24 Active Additional Information Patient taking differently:300 mg oral 2 times daily, Start post-surgery,Indications: Cholelithiasis Prevention, Informant: Self, Reported on 06/30/2024 calcium citrate-vitam in D3 200 mg-6.25 mcg (250 unit) tabletIndicat ions:Preventi on of Vitamin D Deficiency Take 2 tablets by mouth 2 (two) times a day Active Jardiance 25 mg tabletIndicat ions:heart failure associated with type 2 diabetes mellitus Take 1 tablet (25 mg total) by mouth every morning 04/20/20 24 Active polyethylene glycol 3350 (MIRALAX ORAL)Indicati ons:constipat ion Take 1 tablet/chew tab by mouth every morning Active furosemide (LASIX) 20 mg tabletIndicat ions:Pulmonar y Edema due to Chronic Heart Failure Take 1 tablet (20 mg total) by mouth 2 (two) times a day Active acetaminophen (TYLENOL) 500 mg tablet Take 2 tablets (1,000 mg total) by mouth every 6 (six) hours as needed for pain 60 tablet 06/30/19 Active ibuprofen (ADVIL,MOTRIN ) 600 mg tablet Take 1 tablet (600 mg total) by mouth every 6 (six) hours as needed for pain 30 tablet 06/30/19 Active atorvastatin (LIPITOR) 10 mg tablet Take 1 tablet by mouth once daily 90 tablet 3 07/30/19 Active ferrous sulfate 325 mg (65 mg of elemental iron) tabletIndicat ions:Iron Deficiency Anemia Take 1 tablet (325 mg total) by mouth daily with breakfast 30 tablet 11 03/11/202025 Active semaglutide (OZEMPIC) 1 mg/dose (4 mg/3 mL) pen injector injection Inject 1 mg under the skin every 7 days 3 mL 2 03/16/20 Active Ozempic 0.25 mg or 0.5 mg (2 mg/3 mL) pen injector injectionIndi cations:Type 2 diabetes mellitus without complication, without long-term current use of insulin (HCC) INJECT 0.25 MG UNDER THE SKIN EVERY 7 DAYS FOR 30 DAYS. THEN INCREASE TO 0.5 MG EVERY 7 DAYS. 3 mL 02/12/20 25 2024 Discontinued Active Problems Patient Care Coordination No te [...] 04/08/2024 Assessment & Plan (04/09/2024 3:08 PM MORTICIAN HELPER): -likely pre-renal etiology (given clinical hx) due to over-diuresis, ongoing use of ARBs and poor PO intake -cannot entirely r/o ATN given relative hypotensive episodes; however, UA did not reveal any muddy casts -s/p IVF's -hold all diuretics, BP meds -avoid neprhrotoxins -renal dose meds -monitor urine output closely -repeat BMP with improving Cr with fluids Assessment & Plan (04/08/2024 10:17 PM MORTICIAN HELPER): -likely pre-renal etiology (given clinical hx) due [...] -monitor urine output closely -repeat BMP at [place] Acute hypokalemia 04/08/2024 Assessment & Plan (04/09/2024 7:16 AM MORTICIAN HELPER): -2/2 over-diuresis and vomiting with inadequate oral [...] PRN Assessment & Plan (04/08/2024 10:21 PM MORTICIAN HELPER): -2/2 over-diuresis and vomiting with inadequate oral [...] hypotension Assessment & Plan (04/09/2024 7:16 AM MORTICIAN HELPER): -due to over-diuresis, N/V with poor PO intake, ongoing antihypertensive use and polypharmacy -aggressive IV fluid resuscitation overnight -hold BP meds and diuretics -telemetry monitoring -check orthostatics now and in AM -doubt cardiac etiology so repeat TTE of limited utility Assessment & Plan (04/08/2024 10:32 PM MORTICIAN HELPER): -due to over-diuresis, N/V with poor PO intake, ongoing antihypertensive use and polypharmacy -aggressive IV fluid resuscitation overnight -hold BP meds and diuretics -telemetry monitoring -check orthostatics now and in AM -doubt cardiac etiology so repeat TTE of limited utility Overeating disorder 04/08/2024 Assessment & Plan (04/09/2024 7:17 AM MORTICIAN HELPER): -despite her recent sleeve gastrectomy, she still exhibits S/Sx of compulsive overeating, manifested by rapid ingestion of foods and eating past the point of satiety -she will benefit from outpatient referral to a psychotherapist who can assist with behavioral changes long-term Assessment & Plan (04/08/2024 8:35 PM MORTICIAN HELPER): -despite her recent sleeve gastrectomy, she still exhibits S/Sx of compulsive overeating, manifested by rapid ingestion of foods and eating past the point of satiety -she will benefit from outpatient referral to a psychotherapist who can assist with behavioral changes long-term Abnormal EKG 04/08/2024 Assessment & Plan (04/09/2024 3:13 PM MORTICIAN HELPER): -EKG in ED notable for RBBB and [...] able Assessment & Plan (04/08/2024 9:33 PM MORTICIAN HELPER): -EKG in ED notable for RBBB and [...] 04/08/2024 Assessment & Plan (04/09/2024 7:17 AM MORTICIAN HELPER): -she is on multiple medications for CHF [...] tapered/discontinued Assessment & Plan (04/08/2024 10:29 PM MORTICIAN HELPER): -she is on multiple medications for CHF [...] 03/08/2024 Assessment & Plan (04/09/2024 3:11 PM MORTICIAN HELPER): -bariatric diet -nutrition consult -MIS/BariSurg to follow while hospitalized -educate on smaller more frequent meals Assessment & Plan (04/08/2024 9:37 PM MORTICIAN HELPER): -bariatric diet -nutrition consult in AM -MIS/BariSurg [...] 07/29/2023 Assessment & Plan (04/09/2024 7:17 AM MORTICIAN HELPER): -not compliant with home CPAP -may benefit from repeat sleep study as an outpatient Assessment & Plan (04/08/2024 10:33 PM MORTICIAN HELPER): -not compliant with home CPAP -may benefit from repeat sleep study as an outpatient Assessment & Plan (03/09/2024 4:21 PM CDT): No home device. Plan: - BiPAP per RT Other specified anxiety disorders 07/29/2023 Major depressive disorder, recurrent episode, mo derate 07/29/2023 Elevated TSH 06/17/2023 Assessment & Plan (06/17/2023 7:26 PM MORTICIAN HELPER): Labs as ordered. BMI 70 and over, [...] Other: Assessment & Plan (2022 8:08 AM MORTICIAN HELPER): Obesity is worsening. Diet interventions: as noted. [...] 12/21/2021 Assessment & Plan (07/24/2022 5:15 PM MORTICIAN HELPER): Reviewed interim labs with her. A1C at 10 in December. Recheck CMP, A1C. Continue low-carb (<150 g/day), low-glycemic diet. Assessment & Plan (12/21/2021 7:01 PM CDT): Labs. Discussed insulin resistance including effect on weight. Recommended low- carb, low-glycemic diabetic diet; choose whole grains and avoid more highly processed carbohydrates. Discussed potential benefits of this w/r/t gut microbiome. Referred to ADA and [employer] websites for additional information on topics including [...] time. Currently has mirena IUD. - CTAP Mar 03 with mispositioned mirena Plan: - OBGYN to reposition mirena in OR - Defer until stable from cardiopulmonary standpoint - OP referral T2DM (type 2 diabetes mellitus) 2021 Assessment & Plan (04/09/2024 1:02 PM MORTICIAN HELPER): -SSI with QID accuchecks -A1c of 8.0 continuing downward trend -diabetic bariatric diet Assessment & Plan (04/08/2024 9:05 PM MORTICIAN HELPER): -SSI with QID accuchecks -A1c added to [...] covered. Assessment & Plan (2022 8:50 AM MORTICIAN HELPER): Discussed elevated A1C at 10 in December [...] to discuss possible sleep study with PCP. Resolved Problems Problem Noted Date Diagnosed Date Resolved Date Tachycardia 09/13/2022 09/13/2022 Encounters Date Type Department Care Team Description 03/16/2025 Orders Only [facility] Metabolic Weight Management [address] [place] [address] Katrin Hong MD 03/02/2025 10:05 AM CDT - 03/02/2025 11:59 PM CDT Hospital Encounter [facility] [address] [place] [address] Other abnormal and inconclusive findings on diagnostic imaging of breast Discharge Disposition: Discharge to home or self care 02/10/2025 8:20 AM CDT Telemedicine [facility] Metabolic Weight Management [address], [address] [place] [address] Katrin Hong MD Weight loss counseling, encounter for (Primary Dx); Type 2 diabetes mellitus without complication, without long-term current use of insulin (HCC); Class 3 severe obesity with serious comorbidity and body mass index (BMI) greater than or equal to 70 in adult, unspecified obesity type from Last 3 Months Immunizations Immunization Administration Dates Next Due Influenza, Quadrivalent, Split, Intramuscular ,04/26/2015 Influenza, Trivalent, IM (MDV) 05/25/2014 Moderna SARS-CoV-2 Monovalent Vaccination (12+ Y RS) 11/08/2020,10/11/2020 Tdap 05/20/2013 Surgical History Surgery Date Site/Laterality Comments SECTION 05/20/2009 - 05/19/2010 HYSTEROSCOPY DILATION AND CURETTAGE, IUD placemant 08/2021,04/2022 and 08/23/2022 DILATION AND CURETTAGE OF UTERUS CARDIAC CATHETERIZATION 11/26/2022 R/L cardiac cath ESOPHAGOGASTRODUODENOSCOPY 07/04/2023 SLEEVE GASTROPLASTY 02/27/2024 Medical History Medical History Date Comments Morbid obesity (HCC) Type 2 diabetes mellitus Hypertension CHF (congestive heart failure) (HCC) Anxiety Low back pain Depression Sleep apnea 2022 Endometrial cancer Pulmonary hypertension (HCC) Family History Medical History Relation Name Comments Clotting disorder Father Ray Depression Father Ray Diabetes Father Ray Heart attack Father Ray Heart disease Father Ray Hypertension Father Ray Obesity Father Ray Diabetes Mother Ava Escobar Obesity Mother Ava Escobar Anesthesia problems Neg Hx Ovarian cancer Neg Hx Relation Name Status Comments Father Ray Mother Ava Escobar Social History Tobacco Use Types Packs/Day Years Used Date Smoking Tobacco: Former Cigarettes 0.3 0.2 0 05/20/2008 - 08/15/2008 Passive Smoke Exposure: Past Smokeless Tobacco: Never Tobacco Cessation:Counseling Given: Not Answered Alcohol Use Standard Drinks/Week Comments Not Currently 0 (1 standard drink = 0.6 oz pur e alcohol) [facility] Utilities Answer Date Recorded In the past 12 months has e [employer], gas, oil, or water [employer] threatened to shut off services in your home? No 04/10/2024 Humiliation, Afraid, Rape, and Kick questionnair e Answer Date Recorded Within the last year, have y ou been afraid of your partner or ex-partner? No 09/13/2022 Within the last year, have y ou been humiliated or emotionally abused in other ways by your partner or ex-partner? No Within the last year, have y ou been kicked, hit, slapped, or otherwise physically hurt by your partner or ex-partner? No 09/13/2022 Within the last year, have y ou been raped or forced to have any kind of sexual activity by your partner or ex-partner? No 09/13/2022 Social Connection and Isolation Panel Answer Date Recorded In a typical week, how many times do you talk on the phone with family, friends, or neighbors? More than three times a week 03/10/2024 How often do you get togethe r with friends or relatives? More than three times a week 03/10/2024 How often do you attend chur ch or worship services? Never 03/10/2024 Do you belong to any clubs o r organizations such as judaism groups, unions, fraternal or athletic groups, or school groups? No 03/10/2024 How often do you attend meet ings of the clubs or organizations you belong to? Never 03/10/2024 Are you , , di vorced, , never , or living with a partner? 03/10/2024 AUDIT-C Answer Date Recorded Q1: How often do you have a drink containing alcohol? Never 06/30/2024 Q2: How many drinks containi ng alcohol do you have on a typical day when you are drinking? Patient does not drink Q3: How often do you have si x or more drinks on one occasion? Never 06/30/2024 Overall Financial Resource Strain (CARDIA) Answe r Date Recorded How hard is it for you to pa y for the very basics like food, housing, medical care, and heating? Not very hard 04/10/2024 PHQ-2 Answer Date Recorded PHQ-2 Total Score 0 03/04/2024 [facility] - Occupational Stress Questionnaire Answer Date Recorded Do you feel stress - tense, restless, nervous, or anxious, or unable to sleep at night because your mind is troubled all the time - these days? Not at all 09/13/2022 Exercise Vital Sign Answer Date Recorde d On average, how many days pe r week do you engage in moderate to strenuous exercise (like a brisk walk)? 0 days 09/13/2022 On average, how many minutes do you engage in exercise at this level? 0 min 09/13/2022 Hunger Vital Sign Answer Date Recorded Within the past 12 months, y ou worried that your food would run out before you got the money to buy more. Never true 04/10/20 24 Within the past 12 months, t he food you bought just didn't last and you didn't have money to get more. Never true 04/10/2024 PRAPARE - Transportation Answer Date Re corded In the past 12 months, has l ack of transportation kept you from medical appointments or from getting medications? No 03/21 In the past 12 months, has l ack of transportation kept you from meetings, work, or from getting things needed for daily living? No 04/10/2024 Housing Stability Vital Sign Answer Panda e Recorded In the last 12 months, was t here a time when you were not able to pay the mortgage or rent on time? No 09/13/2022 In the last 12 months, how many places have you lived? 1 09/13/2022 In the last 12 months, was t here a time when you did not have a steady place to sleep or slept in a chcf (including now)? No 09/13/2022 Housing Stability Vital Sign Answer Panda e Recorded In the last 12 months, was t here a time when you were not able to pay the mortgage or rent on time? No 04/10/2024 In the past 12 months, how m any times have you moved where you were living? 1 04/10/2024 At any time in the past 12 m [facility], were you homeless or living in a chcf (including now)? No 04/10/2024 Personal Safety Answer Date Recorded Have you ever been in or are you currently in a harmful physical or emotional relationship or is someone making you feel afraid or unsafe? Denies 12/01/2024 Comments No Sex and Gender Information Value Date Recorded Sex Assigned at Not on file Legal Sex Female 3:29 AM MORTICIAN HELPER Gender Identity Not on file Sexual Orientation Straight 06/10/2020 5: 33 PM MORTICIAN HELPER Obstetrics History Para Term AB IAB SAB Ectopic Multiple Livin g Live Births 1 Date Outcome GA Total Labor Labor/2nd/3rd Weight Sex Type Anes PTL Karely A1 A5 Name Clin Last Filed Vital Signs Vital Sign Reading Time Taken Comments Blood Pressure 130/73 12/01/2024 10:00 PM CDT Pulse 98 12/01/2024 10:00 PM CDT Temperature 36.9 C (98.5 F) 12/01/2024 8:01 PM CDT Respiratory Rate 24 12/01/2024 8:01 PM CDT Oxygen Saturation 94% 12/01/2024 10:00 PM CDT Inhaled Oxygen Concentration - - Weight 170.1 kg (375 lb) 12/01/2024 8:01 PM CDT Height 165.1 cm (5' 5) 02/10/2025 8:32 AM CDT Body Mass Index 62.4 12/01/2024 8:01 PM CDT Plan of Treatment Health Maintenance Due Date Last Done Comments Albumin Creatinine Ratio, Urine 1983 Hepatitis C Screening 1983 Dilated Eye Exam 1983 Foot Exam 1983 Varicella Vaccines (1 of 2 - 13+ 2-dose series) 07/25/1996 Hepatitis B Screening 07/25/2001 Regular Well Visit/Exam 18-64 07/25/2001 Pneumococcal vaccine <65 (1 of 2 - PCV) 07/25/2002 HPV Vaccines (1 - 3-dose SCD M series) 07/25/2010 Cervical Cancer Screening 08/29/2022 08/29/2021 DTaP/Tdap/Td Vaccine (2 - Td or Tdap) 05/20/2023 05/20/2013 Hemoglobin A1C 10/06/2024 04/08/2024, 01/18, 11/08/2023, Additional history exists Covid-19 Vaccine (2024-2 6 season) 2025 08/26/2021, 11/08/2020, 10/30/2020, Additional history exists Influenza Vaccine (#1) 2025 , 04/26/2015, 05/25/2014 Depression Screening 03/03/2025 03/03/2024, 09/12/2022, 09/12/2022 Lipid Panel 04/08/2025 04/08/2024, 10/19, 06/14/2023, Additional history exists Breast Cancer Screening-Mammogram 06/18/2025 025 eGFR 12/01/2025 12/01/2024, 03/21, 04/09/2024, Additional history exists Medical Devices Implanted Type Area Plant Sprayer Device Identifier Shelf Expiration Date Model / Serial / Lot [employer] Biological Bariatric Peristrip Non Crosslinked Bovine Pericardium For Endo Nadiya Thin [id number] - Sn/A - [id number] Implanted:Qty: 1 on 02/27/2024 by Michael Kirkland MD at [facility] Other - see comments N/A: Abdomen [employer] 09/06/2025 [id number] THN / N/A / [id number] Description:Cecy strip [employer] Bariatric Peristrip Non Crosslinked Bovine Pericardium For Endo Nadiya Thin [id number] - Sn/A - [id number] Implanted:Qty: 1 on 02/27/2024 by Michael Kirkland MD at [facility] Other - see comments N/A: Abdomen [employer] 09/06/2025 [id number] THN / N/A / [id number] Description:Cecy strip [employer] Bariatric Peristrip Non Crosslinked Bovine Pericardium For Endo Nadiya Thin [id number] - Sn/A - [id number] Implanted:Qty: 1 on 02/27/2024 by Michael Kirkland MD at [facility] Other - see comments N/A: Abdomen [employer] 09/06/2025 [id number] THN / N/A / [id number] Description:Cecy strip [employer] Bariatric Peristrip Non Crosslinked Bovine Pericardium For Endo Nadiya Thin [id number] - Sn/A - [id number] Implanted:Qty: 1 on 02/27/2024 by Michael Kirkland MD at [facility] Other - see comments N/A: Abdomen [employer] 09/06/2025 [id number] THN / N/A / [id number] Description:Cecy strip [employer] Bariatric Peristrip Non Crosslinked Bovine Pericardium For Endo Nadiya Thin [id number] - Sn/A - [id number] Implanted:Qty: 1 on 02/27/2024 by Michael Kirkland MD at [facility] Other - see comments N/A: Abdomen [employer] 09/06/2025 [id number] THN / N/A / [id number] Description:Cecy strip [employer] Bariatric Peristrip Non Crosslinked Bovine Pericardium For Endo Nadiya Thin [id number] - Sn/A - [id number] Implanted:Qty: 1 on 02/27/2024 by Michael Kirkland MD at [facility] Other - see comments N/A: Abdomen [employer] 09/06/2025 [id number] THN / N/A / [id number] Description:Cecy strip Procedures Procedure Name Priority Date/Time Associated Diagnosis Comments US BREAST BILATERAL LIMITED Schedule Routine, Read Routine (OP Routine) 03/02/2025 12:05 PM CDT Other abnormal and inconclusive findings on diagnostic imaging of breast EGFR STAT 12/01/2024 8:01 PM CDT DIAGNOSTIC MAMMOGRAM BILATERAL W TIM Schedule Routine, Read Routine (OP Routine) 06/18/2024 3:03 PM MORTICIAN HELPER Mass of right breast, unspecified quadrant Other signs and symptoms in breast HEMOGLOBIN A1C STAT 04/08/2024 12:40 PM MORTICIAN HELPER LIPID PANEL STAT 04/08/2024 12:40 PM MORTICIAN HELPER PAP ONLY Routine 08/29/2021 2:16 PM CDT from Last 3 Months or Most Recently Relevant to Health Maintenance Results * US Breast Bilateral Limited (03/02/2025 12:05 PM CDT) Anatomical Region Laterality Modality Breast Bilateral Ultrasound 03/02/2025 2:37 PM CDT Impressions 03/02/2025 2:37 PM CDT Multiple probably benign oval circumscribed hypoechoic masses in both breasts overall do not appear significantly changed on ultrasound as detailed above. These are favored to represent fibroadenomas. The method of initial detection of finding was other/incidental (N). OVERALL FINAL ASSESSMENT: BI-RADS Category 3: Probably Benign. RECOMMENDATION: Recommend follow-up diagnostic breast imaging in 4 months, with bilateral diagnostic mammogram and targeted breast ultrasound. Electronically signed by: Kwabena Lloyd M.D. Narrative 03/02/2025 2:37 PM CDT EXAMINATION: BILATERAL BREAST ULTRASOUND HISTORY: 39-year-old female presents for follow-up of probably benign masses in both breasts. COMPARISON: Diagnostic mammogram/ultrasound dated 06/18/2024 TECHNIQUE: Directed ultrasound evaluation of BOTH breasts was performed. ULTRASOUND FINDINGS: Prior diagnostic mammogram from 06/18/2024 demonstrated multiple similar appearing oval circumscribed masses in both breasts. Based on their morphology, multiplicity, and bilaterality, these masses are very likely benign. Short-term follow-up bilateral breast ultrasound of some of these masses was recommended on the prior diagnostic workup. RIGHT BREAST: Sonographic evaluation of the right breast at 6:00, 5 cm from the nipple demonstrates a 2.2 x 0.8 x 1.7 cm oval circumscribed hypoechoic mass with parallel orientation and no internal blood flow on color Doppler. This has not suspiciously changed from prior ultrasound, previously measuring 2.1 x 0.7 x 1.7 cm. In close proximity to this mass, there is a similar appearing smaller right breast mass measuring 1.3 x 0.5 x 1.6 cm at 6:00, 6 cm from the nipple. When viewed in the radial projection, this mass appears very similar to the prior ultrasound, measuring 1.3 x 0.5 cm. However, in the antiradial projection, this mass measures larger today at 1.6 cm (versus 0.8 cm previously). This apparent change is thought to be most likely secondary to differences in probe positioning/measurement technique. LEFT BREAST: Targeted ultrasound of the left breast at 7:00, 5 cm from nipple redemonstrates a 0.8 x 0.2 x 0.5 cm oval circumscribed hypoechoic mass with no internal blood flow. This has not suspiciously changed in the interval, previously measuring 0.7 x 0.2 x 0.4 cm. Immediately adjacent to this small stable mass is a larger oval circumscribed hypoechoic mass measuring 1.4 x 0.8 x 1.4 cm. 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 In comparison with prior ultrasound (cine loop), this mass has not suspiciously changed. In close proximity to these 2 left breast masses is a third hypoechoic mass with similar morphology measuring 0.7 x 0.5 x 0.9 cm. This may well correlate with the smaller circumscribed mass noted/detailed on the prior diagnostic ultrasound (report). us Amira Dash NP IMG MAMMO PROCEDURES Final R esult * eGFR (12/01/2024 8:01 PM CDT) eGFR 86 >=60 mL/min/1. 73 m2 Comment: Interpretive Data Reference Interval Normal >/= 90 mL/min/1.73m2 Mildly decreased* 60 - 89 mL/min/1.73m2 Mildly to moderately decreased 45 - 59 mL/min/1.73m2 Moderately to severely decreased 30 - 44 mL/min/1.73m2 Severely decreased 15 - 29 mL/min/1.73m2 Kidney Failure < 15 mL/min/1.73m2 *Relative to young adult level Estimated glomerular filtration rate is determined by the 2020 CKD-EPI equation recommended by the National Kidney Foundation (A Unifying Approach to GFR Estimation: Recommendations of the NKF-ASK Task Force on Reassessing the Inclusion of Race in Diagnosing Kidney Disease, JASN 2020). The CKD-EPI equation should not be used for patients with unstable renal function and has not been validated in children and those over 70. Current interpretive data was last reviewed 2021. 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 One of the right-sided 1's is thought to account for the CT finding. Six-month follow-up bilateral ultrasound is recommended, to include the right axilla. OVERALL FINAL ASSESSMENT: BI-RADS 3 - Probably benign findings. Short-term follow-up is recommended. Electronically signed by: Hallie Mcgowan M.D. Narrative 06/18/2024 4:09 PM MORTICIAN HELPER EXAMINATION: BILATERAL DIGITAL DIAGNOSTIC MAMMOGRAM AND DIGITAL BREAST TOMOSYNTHESIS; BILATERAL BREAST SONOGRAM HISTORY: Mass questioned on body CT in the inferior right breast COMPARISON: Chest CT from February, and abdomen/pelvis CT from March,. TECHNIQUE: Full field digital mammographic views of the bilateral breast(s) were performed, including computer aided detection (CAD) and digital breast tomosynthesis (DBT). Directed ultrasound evaluation of the bilateral breast(s) was performed. BREAST PARENCHYMAL COMPOSITION: The breasts are heterogeneously dense, which may obscure small masses. MAMMOGRAM FINDINGS: There are 2 masses in the inferior right breast at approximately 6:00, either of which could account for the structure image of the superior aspect of the abdomen/pelvis CT. They are adjacent to one another. Both appear to have circumscribed margins. On the left, there is a circumscribed mass at 7:00 which contains coarse, popcorn-like calcifications. This is consistent with a fibroadenoma. Adjacent to this is a smaller bilobed mass with circumscribed margins. No suspicious calcifications are seen. There is no unexplained architectural distortion. There is no skin thickening seen. There are no mammographically abnormal lymph nodes seen in the axillae or elsewhere. ULTRASOUND FINDINGS: On the right, the larger mass is at 6:00 and measures 2.1 cm in greatest diameter. It is circumscribed and homogeneously hypoechoic, aside from an echogenic striation. It has parallel orientation. The smaller mass has similar appearance and is also located at 6:00. The maximum dimension is 1.3 cm. It shows some minimal acoustic shadowing, at least a portion of which is thought to relate to edge refraction. A lymph node in the right axilla has minimal cortical thickening at 4 mm. The mass consistent with a fibroadenoma is seen at 7:00. It has a maximum dimension of 2.0 cm. The orientation is parallel. Just adjacent to this at 6:00 is the smaller mass, which is also circumscribed and bilobed. The maximum dimension is 1.3 cm. It has minimal acoustic shadowing, but is still thought to very likely represent a fibroadenoma. us Amira Dash NP IMG MAMMO PROCEDURES Final R esult * (ABNORMAL) Hemoglobin A1c (04/08/2024 12:40 PM MORTICIAN HELPER) Hgb A1C 8.0(H) 4.0 - 5.6 % Estimated Average Glucose 183 mg/dL [facility] Comment: The ADA recommends reporting an estimated Average Glucose (eAG) with all Hemoglobin A1c results using the equation derived from a study of 507 normal and diabetic adults. Minority populations were underrepresented and children were not included. (Diabetes Care 31:7510-9661, 2008). The eAG is not equivalent to a fasting glucose. Blood 04/08/2024 12:4 0 PM MORTICIAN HELPER 04/08/2024 12:44 PM MORTICIAN HELPER us Michael Kirkland MD LAB BLOOD ORDERABLES Final Resu lt [facility] [address] [facility]. Department of Laboratories [facility] [address] * Lipid panel (04/08/2024 12:40 PM MORTICIAN HELPER) Cholesterol 150 30 - 199 mg/dL Comment: Interpretive Data Ages < or = 19 years Acceptable: <170 mg/dL Borderline high: 170-199 mg/dL High: >or= 200 mg/dL Ages > or = 20 years Desirable: <200 mg/dL Borderline high: 200-239 mg/dL High: >or= 240 mg/dL Literature References: 1. Expert Panel on Integrated Guidelines for Cardiovascular Health and Risk Reduction in Children and Adolescents. Pediatrics 2011;128:S213 2. NCEP Expert Panel. Circulation 2004;110:227 Current Interpretive Data was last revised on 2018. Triglycerides 144 <=149 mg/dL ORTEGA ADAIR Comment: Interpretive Data Ages < or = 9 years Acceptable: <75 mg/dL Borderline high: 75-99 mg/dL High: >or= 100 mg/dL Ages 10 to 20 years Acceptable: <90 mg/dL Borderline high: 90-129 mg/dL High: >or= 130 mg/dL Ages > or = 20 years Desirable: <150 mg/dL Borderline high: 150-199 mg/dL High: 200-499 mg/dL Very high: >or= 499 mg/dL Literature References: 1. Expert Panel on Integrated Guidelines for Cardiovascular Health and Risk Reduction in Children and Adolescents. Pediatrics 2011;128:S213 2. NCEP Expert Panel. Circulation 2004;110:227 Current Interpretive Data was last revised on 2018. HDL 41 >=40 mg/dL ORTEGA ADAIR Comment: Interpretive Data Ages < or = 19 years Acceptable: >45 mg/dL Borderline low: 40-45 mg/dL Low: <40 mg/dL Ages > or = 20 years Desirable: >or= 60 mg/dL Low: <40 mg/dL Literature References: 1. Expert Panel on Integrated Guidelines for Cardiovascular Health and Risk Reduction in Children and Adolescents. Pediatrics 2011;128:S213 2. NCEP Expert Panel. Circulation 2004;110:227 Current Interpretive Data was last revised on 2018. LDL, calculated 84 <=129 mg/dL ORTEGA ADAIR Comment: Interpretive Data Ages < or = 19 years Acceptable: <110 mg/dL Borderline high: 110-129 mg/dL High: >or= 130 mg/dL Ages > or = 20 years Optimal: <100 mg/dL Near optimal: 100-129 mg/dL Borderline high: 130-159 mg/dL High: >160 mg/dL Calculated using the Norberto LDL-C estimating equation. This equation was implemented on 2024. Prior to this date LDL-C was estimated using the Friedewald equation. Literature References: 1. Expert Panel on Integrated Guidelines for Cardiovascular Health and Risk Reduction in Children and Adolescents. Pediatrics 2011;128:S213 2. NCEP Expert Panel. Circulation 2004;110:227 3. Norberto Galeana et al. KALEB Cardiol. 2020 September 17;5(5):540-548. doi: 10.1001/jamacardio.2020.0013 Current Interpretive Data was last revised on 2024. Non-HDL Cholesterol 109 mg/dL ORTEGA ADAIR Comment: Interpretive Data Ages < or = 19 years Acceptable: <120 mg/dL Borderline high: 120-144 mg/dL High: >145 mg/dL Ages > or = 20 years When triglycerides are >200 mg/dL, Non-HDL cholesterol is a secondary target of therapy with treatment goals that are 30 mg/dL greater than the LDL cholesterol target. Literature References: 1. Expert Panel on Integrated Guidelines for Cardiovascular Health and Risk Reduction in Children and Adolescents. Pediatrics 2011;128:S213 2. NCEP Expert Panel. Circulation 2004;110:227 Current Interpretive Data was last revised on 2018. Chol/HDL ratio 4 ORTEGA ADAIR Blood 04/08/2024 12:4 0 PM MORTICIAN HELPER 04/08/2024 12:44 PM MORTICIAN HELPER us Michael Kirkland MD LAB BLOOD ORDERABLES Final Resu lt [facility] [address] [facility]. Department of Laboratories [facility] [address] * Pap Only (08/29/2021 2:16 PM CDT) Pap test 08/29/2021 2:16 PM CDT 08/29/2021 5:32 PM CDT Narrative 09/05/2021 2:01 PM CDT EPIC results best viewed via link to PDF [facility] Rossana Vazquez [facility] [place] [address] Note to Patients: This report may contain a detailed description of human tissue sent by a health care provider to the laboratory for pathologic evaluation. The content of this report is essential for diagnosis and may provide important critical findings. This information may be unfamiliar to patients to review without a medical professional present. It is advised that the patient review this report in the presence of a health care provider who can answer questions and explain the details. CYTOPATHOLOGY REPORT FINAL Patient Name: NOLVIA LOPEZ Gender: Addis : 1985 (Age: 36) Address: [address] [place] [address] Hospital #: [id number] Service: Surgery Location: [facility] Patient [facility] Taken: 08/29/2021 Received: 08/29/2021 Accessioned: 08/30/2021 Reported: 09/05/2021 Physician(s): Amira Dash NP FINAL INTERPRETATION SOURCE OF SPECIMEN: Liquid based Thin Prep pap STATEMENT OF ADEQUACY: - Satisfactory for evaluation - Endocervical cells/transformation zone sample present GENERAL CATEGORY: - Negative for squamous intraepithelial lesion or malignancy Comments HPV Result: NEGATIVE for high risk types of Human Papilloma Virus (HPV) RNA This probe detects the presence of HPV types: 16, 18, 31, 33, 35, 39, 45, 51, 52, 56, 58, 59, 66 and 68. This HPV test was performed at [facility] in [facility], [place] utilizing the Gen-Probe Aptima assay. 09/05/2021 14:01 FATUMA Cantu(ASCP) Report Electronically Reviewed and Signed Out By FATUMA Cantu(ASCP) 09/05/2021 14:01:36 Cervicovaginal Cytology (Pap Test) Disclaimer: The Pap test is a screening test used to detect cervical cancer and its precursors; it is not a diagnostic procedure. False negative and false positive results do occur. Pap test results should be interpreted in the context of pertinent clinical information and biopsy results as indicated. Gross Description A. Liquid based Thin Prep pap: Cervical/vaginal - Screening ThinPrep Clinical Diagnosis and History Last Menstrual Period: unknown The patient is a 36 year old woman with abnormal uterine bleeding. The HPV test was performed by [facility], [address] [place] [address]. Report Images and scanned documents, if included only viewable in PDF version The performance characteristics of some immunohistochemical stains, in-situ hybridization and fluorescence in-situ hybridization tests and immunophenotyping by flow cytometry cited in this report (if any) were determined by the Surgical Pathology Department at [facility] as part of an ongoing quality control microbiologist program and in compliance with federally mandated regulations drawn from the Clinical Laboratory Improvement Act of 1988 (CLIA '88). Some of these tests rely on the use of analyte specific reagents and are subject to specific labeling requirements by the US Food and Drug Administration. Such diagnostic tests may only be performed in a facility that is certified by the Department of Health and Human Services as a high complexity laboratory under CLIA '88. The FDA has determined that such clearance or approval is not necessary. This test is used for clinical purposes. It should not be regarded as investigational or for research. Nevertheless, federal rules concerning the medical use of analyte specific reagents require that the following disclaimer be attached to the report: This test was developed and its performance characteristics determined by the Surgical Pathology Department of [facility]. It has not been cleared or approved by the U. S. Food and Drug Administration. Amira Dash PIPE MAKER LAB CYTOLOGY ORDERABLES Anastasia l Result from Last 3 Months or Most Recently Relevant to Health Maintenance Insurance [address] [id number] [phone] [facility] Advance Directives For more information, please contact: [phone] * Full Code (Latest Code Status on File) Date Activated Date Inactivated Comments 04/08/2024 8:28 PM 04/10/2024 7:26 PM * Full Code Date Activated Date Inactivated Comments 04/08/2024 6:38 PM 04/08/2024 8:28 PM * Full Code Date Activated Date Inactivated Comments 04/08/2024 5:38 PM 04/08/2024 6:38 PM * Full Code Date Activated Date Inactivated Comments 03/04/2024 3:34 AM 03/09/2024 7:48 PM * Full Code Date Activated Date Inactivated Comments 02/27/2024 6:22 PM 02/28/2024 8:09 PM Healthcare Agents on File Name Relationship Healthcare Agent [facility] p Communication Curry Lopez Spouse Health Care Agent [email or web address] Maru Looney Sister First Alternate Health Care Agent Care Teams Commercial Credit Reviewer Relationship Specialty Start Date End Date Amira Dash NP [address] [facility] [address] [place] [address] PCP - General Nurse Practitioner 06/24/20 Katrin Hong MD [address] [facility], [facility] [address] [place] [address] Referring Physician Internal Medicine 06/27/23 Janet Sanchez NP [address] G[facility]RIC [facility], [address] [address] Nurse Practitioner Family Medicine 06/27/23
--- OUTSIDE RECORDS SUMMARY | 2025-04-12 17:41 | XMS_ITS | Clinical Summary ---
Author Organization [facility] Address [address], [place] [address] Phone Care Team Providers Care Scheduler Name Role Phone Beth Chan Primary Care Provider Liliana Mendoza APRN, [place] Unavailable [phone] Medications amitriptyline (ELAVIL) 100 MG Tablet 3 Active Eliquis 5 MG Tablet Take 5 mg by mouth 2 times daily. 3 Active buPROPion (WELLBUTRIN) 150 MG XL tablet 3 Active carvedilol (COREG) 12.5 MG Tablet Take 12.5 mg by mouth 2 times daily. 3 Active citalopram (CeleXA) 20 MG Tablet TAKE 1 TABLET BY MOUTH ONCE DAILY IN ADDITION TO 40 MG TABLET 3 Active citalopram (CeleXA) 20 MG Tablet Take 20 mg by mouth. Active cyclobenzaprine (FLEXERIL) 10 MG Tablet TAKE 1 TABLET BY MOUTH EVERY 8 HOURS NEEDED 3 Active Trulicity 3 MG/0.5ML Solution Pen-injector INJECT 3 MG UNDER THE SKIN ONCE A WEEK 3 Active Jardiance 25 MG Tablet Take 25 mg by mouth daily. 3 Active furosemide (LASIX) 40 MG Tablet 3 Active furosemide (LASIX) 20 MG Tablet Take 20 mg by mouth. Active glipiZIDE (GLUCOTROL) 10 MG Tablet 3 Active losartan (COZAAR) 50 MG Tablet 3 Active potassium chloride CR (KLORCON) 10 MEQ Tablet Controlled Release 3 Active OXYGEN CONCENTRATOR 4 L by Does not apply route. Use as directed Active Active Problems Problem Noted Date Diagnosed Date Obstructive sleep apnea 12/24/2022 Class 3 severe obesity due t o excess calories with serious comorbidity and body mass index (BMI) greater than or equal to 70 in adult 12/24/2022 SOB (shortness of breath) 12/24/2022 Resolved Problems Problem Noted Date Diagnosed Date Resolved Date Primary insomnia 12/24/2022 12/24/2022 Social History Tobacco Use Types Packs/Day Years Used Date Smoking Tobacco: Former Cigarettes Smokeless Tobacco: Never Alcohol Use Standard Drinks/Week Comments Never 0 (1 standard drink = 0.6 oz pur e alcohol) Sexually Active Control Partners Comments Yes Comments Unknown Sex and Gender Information Value Date Recorded Sex Assigned at Not on file Legal Sex Female 11:55 PM CDT Gender Identity Not on file Sexual Orientation Not on file Last Filed Vital Signs Vital Sign Reading Time Taken Comments Blood Pressure 142/76 12/24/2022 10:10 AM CDT Pulse 98 12/24/2022 10:10 AM CDT Temperature 36.2 C (97.2 F) 12/24/2022 10:10 AM CDT Respiratory Rate 16 12/24/2022 10:1 0 AM CDT Oxygen Saturation 88% 12/24/2022 10: 10 AM CDT Inhaled Oxygen Concentration - - Weight 221.3 kg (487 lb 12.8 oz) 2022 10:10 AM CDT Height 165.1 cm (5' 5) 12/24/2022 10:1 0 AM CDT Body Mass Index 81.17 12/24/2022 10:10 AM CDT Plan of Treatment Health Maintenance Due Date Last Done Comments Hepatitis C Virus (HCV) Screening 1985 Mammogram 1985 Varicella Immunization (1 of 2 - 13+ 2-dose series) 07/25/1996 Hepatitis B Immunization (1 of 3 - 19+ 3-dose series) 07/25/2002 Pap Smear 07/25/2004 Human Papillomavirus (HPV) Immunization (1 - 3-dose SCDM series) 07/25/2010 Cervical Cancer Screening (CCS) 07/25/2013 HPV/Cotest 07/25/2013 Discussion re Starting/Frequency of Mammograms 2023 Influenza Immunization (#1) 01/18/202504/19, 04/26/2015, 05/25/2014 SARS-COV-2 Immunization ( season) 2025 08/26/2021, 11/08/2020, 10/30/2020, Additional history exists Respiratory Syncytial Virus (RSV) Immunization (Adult) (1 - 1-dose 75+ series) 07/25/2058 DTaP/Tdap/Td Immunization Discontinued 05/20/2013 TdaP Immunization Completed 05/20/2013 Meningococcal Immunization (ACWY) Aged Out No longer eligible based on patient's age to complete this topic Pneumococcal Immunization Combined Aged Out No longer eligible based on patient's age to complete this topic Rotavirus Immunization Aged Out No lo nger eligible based on patient's age to complete this topic Insurance MEDICAID [employer] Care Teams Scheduler Relationship Specialty Start Date End Date Beth Chan PA [address] [place] [address] PCP - General Adult Medicine 12/16/17 Liliana Mendoza APRN, YOANA [address] [address] Nurse Practitioner Advanced Practice Nurse 8/7/23
--- OUTSIDE RECORDS SUMMARY | 2025-04-12 17:41 | XMS_ITS | Encounter Summary ---
Author Organization [facility] Address [address] [place] [address] Phone Care Team Providers Care Mother'S Helper Name Role Phone Hardy, Amira Lee STRIP CUTTER Primary Care Provider Katrin Hong MD Unavailable [phone] Janet Sanchez STRIP CUTTER Unavailable [phone] Michael Tavarez PT Unavailable Madina Shaikh COMPUTER SCIENCE INSTRUCTOR Unavailable [phone] Encounter Details Date Type Department Care Team (Latest Contact Info) Description 01/02/2022 Orders Only [facility] Scanning, Provider Social History Tobacco Use Types Packs/Day Years Used Date Smoking Tobacco: Former Cigarettes Q uit: 08/15/2008 Smokeless Tobacco: Never Alcohol Use Standard Drinks/Week Comments Not Currently 0 (1 standard drink = 0.6 oz pur e alcohol) AUDIT-C Answer Date Recorded Q1: How often do you have a drink containing alc ohol? Monthly or less 08/22/2021 Q2: How many drinks containi ng alcohol do you have on a typical day when you are drinking? 1 or 2 08/22/2021 Q3: How often do you have si x or more drinks on one occasion? Never 08/22/2021 Comments No Sex and Gender Information Value Date Recorded Sex Assigned at Not on file Legal Sex Female 3:29 AM CORPORATE TRAFFIC MANAGER Gender Identity Not on file Sexual Orientation Straight 06/10/2020 5: 33 PM CORPORATE TRAFFIC MANAGER documented as of this encounter Functional Status documented as of this encounter Plan of Treatment Not on file documented as of this encounter Procedures Procedure Name Priority Date/Time Associated Diagnosis Comments SCAN - LABS 01/02/2022 documented in this encounter Results * SCAN - LABS (01/02/2022) us Provider Scanning Final Result documented in this encounter Visit Diagnoses Not on filedocumented in this encounter Additional Health Concerns Infection Onset Date Last Indicated Resolved Time COVID: Suspected 09/12/2022 09/12/2022 09/12/2022 10:17 PM CDT COVID: Suspected 03/03/2024 03/03/2024 03/03/2024 9:52 PM CDT documented as of this encounter Care Teams Mother'S Helper Relationship Specialty Start Date End Date Amira Dash NP [address] [address] PCP - General Nurse Practitioner 06/24/20 Katrin Hong MD [address] [facility] [address] [id number] Referring Physician Internal Medicine 06/27/23 Janet Sanchez NP [address] [facility] [address] [address] Nurse Practitioner Family Medicine 06/27/23 [place] [address] [place] [address] Physical Therapist Physical Therapy 09/09/23 09/09/23 Madina Shaikh COMPUTER SCIENCE INSTRUCTOR [address] [facility] [phone] [place] [address] SHOP Outpatient Electrical Subcontractor 03/10/24 04/06/24 documented as of this encounter
--- OUTSIDE RECORDS SUMMARY | 2025-04-12 17:41 | XMS_ITS | Encounter Summary ---
Author Organization [facility] Address [address] [facility] [address] [place] [address] Phone Care Team Providers Care Coding Clerk Name Role Phone Hardy, Amira Lee [facility] Primary Care Provider [phone] Katrin Hong MD Unavailable [phone] Janet Sanchez NP Unavailable Madina ShaikhW Unavailable Encounter Details Date Type Department Care Team (Late st Contact Info) Description 03/16/2024 Telephone [place] [facility] ([facility]) - [facility] Minimally Invasive Surgery [address] [facility] [address], [address] [place] [address] Michael Kirkland MD [address] [facility] [place] [id number] [place] [address] Social History Tobacco Use Types Packs/Day Years Used Date Smoking Tobacco: Former Cigarettes Q uit: 08/15/2008 Passive Smoke Exposure: Past Smokeless Tobacco: Never Alcohol Use Standard Drinks/Week Comments Not Currently 0 (1 standard drink = 0.6 oz pur e alcohol) [facility] Utilities Answer Date Recorded In the past 12 months has e electric, gas, oil, or water company threatened to shut off services in your home? No 03/10/2024 Humiliation, Afraid, Rape, and Kick questionnair e [...] often do you attend chur ch or adventist services? Never 03/10/2024 Do you belong to any clubs o r organizations such as congregational groups, unions, fraternal or athletic groups, or school groups? No 03/10/2024 How often do you attend meet ings of the clubs or organizations you belong to? Never 03/10/2024 Are you , , di vorced, , never , or living with a partner? 03/10/2024 AUDIT-C Answer Date Recorded Q1: How often do you have a drink containing alcohol? Never 02/27/2024 Q2: How many drinks containi ng alcohol do you have on a typical day when you are drinking? Patient does not drink Q3: How often do you have si x or more drinks on one occasion? Never 02/27/2024 Overall Financial Resource Strain (CARDIA) Answe r Date Recorded How hard is it for you to pa y for the very basics like food, housing, medical care, and heating? Not very hard 03/10/2024 PHQ-2 Answer Date Recorded PHQ-2 Total Score 0 03/04/2024 [facility] - Occupational Stress Questionnaire Answer Date Recorded [...] the money to buy more. Never true 03/10/20 24 Within the past 12 months, t he food you bought just didn't last and you didn't have money to get more. Never true 03/10/2024 PRAPARE - Transportation Answer Date Re corded In the past 12 months, has l ack of transportation kept you from medical appointments or from getting medications? No 02/18 In the past 12 months, has l ack of transportation kept you from meetings, work, or from getting things needed for daily living? No 03/10/2024 Housing Stability Vital Sign Answer Panda e [...] place to sleep or slept in a assisted (including now)? No 09/13/2022 Housing Stability Vital Sign Answer Panda e Recorded In the last 12 months, was t here a time when you were not able to pay the mortgage or rent on time? No 03/10/2024 In the past 12 months, how m any times have you moved where you were living? 0 03/10/2024 At any time in the past 12 m [facility], were you homeless or living in a assisted (including now)? No 03/10/2024 Personal Safety Answer Date Recorded Have you ever been in or are you currently in a harmful physical or emotional relationship or is someone making you feel afraid or unsafe? Denies 03/04/2024 Comments No Sex and Gender Information Value Date Recorded Sex Assigned at Not on file Legal Sex Female 3:29 AM [employer] Gender Identity Not on file Sexual Orientation Straight 06/10/2020 5: 33 PM NETWORK RELAY TE[employer] documented as of this encounter Plan of Treatment Not on file documented as of this encounter Visit Diagnoses Not on filedocumented in this encounter Care Teams Coding Clerk Relationship Specialty Start Date End Date Hardy, Amira Lee NP [address] [address] PCP - General Nurse Practitioner 06/24/20 Katrin Hong MD [address] [facility] [address] [address] Referring Physician Internal Medicine 06/27/23 Janet Sanchez NP [address] [facility] [address] [address] Nurse Practitioner Family Medicine 06/27/23 Madina Shaikh, HEAD WAITRESS [address] [facility] ([facility] Mailstop [phone] [place] [address] [employer] 03/10/24 04/06/24 documented as of this encounter
== END 2025-04-12 15:28 | disposition home or self-care (01) ==
PROVIDERS: PCP Nurse Practitioner Family
DX: S61.213A Laceration without foreign body of left middle finger without damage to nail, initial encounter (principal); Z87.891 Personal history of nicotine dependence; I50.9 Heart failure, unspecified; E11.9 Type 2 diabetes mellitus without complications; Z23 Encounter for immunization; W45.8XXA Other foreign body or object entering through skin, initial encounter
CPT/HCPCS: 90471; 90715; 99212; G0463